=== PATIENT | male | born 1955 | race Caucasian/White ===

== ENCOUNTER 2023-08-12 18:25 | Emergency (ER) | payer MEDICARE ==
[~2023-08-12] VITALS: Ht 180.3 cm; Wt 109.1 kg
[2023-08-12] MEDS ORDERED: NO HOME MEDS (18:41)
[2023-08-12 20:24] LABS: BASOPHILS # (AUTO) 0.1 X10'3 (0-0.2); BASOPHILS % (AUTO) 0.7 % (0-1); EOSINOPHILS # (AUTO) 0.9 X10'3 (0-0.9); EOSINOPHILS % (AUTO) 7.4 % (0-6); HEMATOCRIT 40.5 % (42.0-52.0); HEMOGLOBIN 13.7 g/dl (14.0-17.9); LYMPHOCYTES # (AUTO) 1.3 X10'3 (1.1-4.8); LYMPHOCYTES % (AUTO) 11.2 % (21-51); MEAN CORPUSCULAR HEMOGLOBIN 36.2 PG (27.0-31.0); MEAN CORPUSCULAR HGB CONC 33.8 g/dL (33.0-36.5); MEAN CORPUSCULAR VOLUME 106.9 FL (78-98); MONOCYTES # (AUTO) 0.8 X10'3 (0-0.9); MONOCYTES % (AUTO) 6.6 % (2-12); NEUTROPHILS # (AUTO) 8.7 X10'3 (1.8-7.7); NEUTROPHILS % (AUTO) 74.1 % (42-75); PLATELET COUNT 228 X10'3 (140-440); RED BLOOD COUNT 3.78 X10'6 (4.70-6.10); RED CELL DISTRIBUTION WIDTH 13.7 % (11.5-14.5); WHITE BLOOD COUNT 11.8 X10'3 (4.5-11.0)
[2023-08-12] MEDS: normal saline 1000ML IV soln IV ONE (20:25)
[2023-08-12 20:40] LABS: APTT 24 SECONDS (22-32); PROTHROMBIN TIME 11.1 SECONDS (9.0-12.0)
[2023-08-12 20:42] LABS: ALANINE AMINOTRANSFERASE 72 U/L (12-78); ALBUMIN 3.1 G/DL (3.4-5.0); ALBUMIN/GLOBULIN RATIO 0.9 (1.1-1.5); ALKALINE PHOSPHATASE 71 IU/L (46-116); ANION GAP 5 (8-16); ASPARTATE AMINO TRANSFERASE 36 U/L (10-37); BILIRUBIN,TOTAL 0.6 MG/DL (0.1-1.0); BLOOD UREA NITROGEN 22 MG/DL (7-18); BUN/CREATININE RATIO 19.8 (10.0-20.0); CALCIUM 9.2 MG/DL (8.5-10.1); CHLORIDE 106 MMOL/L (99-107); CREATININE 1.11 MG/DL (0.60-1.10); GLUCOSE 246 MG/DL (70-104); SODIUM 139 MMOL/L (135-145); TOTAL CARBON DIOXIDE 28.3 MMOL/L (24-32); TOTAL PROTEIN 6.7 G/DL (6.4-8.2); eCRCL 67 ML/MIN; eGFR 66 ML/MIN
[2023-08-12] MEDS ORDERED: iohexol 300mg/ml 100ml inj. ONE (21:08)
[2023-08-12 21:30] VITALS: BP 150/91; PULSE 83; RESP 18; O2SAT 98
[2023-08-12] MEDS: pantoprazole 40 MG vial IV ONE (22:52)
[2023-08-12] MEDS ORDERED: PANT-47 PO (23:36)
[2023-08-12 23:58] VITALS: TEMP 98.2
[2023-08-13 03:21] LABS: OCCULT BLOOD STOOL POSITIVE (Neg)
== END 2023-08-13 00:06 | disposition home or self-care (01) ==
LOC: ER 18:26
DX: K92.2 Gastrointestinal hemorrhage, unspecified (principal); R53.1 Weakness; R11.0 Nausea
CPT/HCPCS: 36415; 71260; 74177; 80053; 82272; 85025; 85610; 85730; 86885; 86900; 86901; 96361; 96365; 99285; C9113; J7030; Q9967